=== PATIENT | female | born 1990 | race Two or more races ===

== ENCOUNTER → 2017-08-28 | Outpatient (CLI) | payer MEDICAID | LOC: FIMAGING 14:18 | DX: Z34.92 Encounter for supervision of normal pregnancy, unspecified, second trimester (principal); Z3A.23 23 weeks gestation of pregnancy ==

== ENCOUNTER 2017-10-24 11:57 | Observation (INO) | payer OTHER, MEDICAID ==
[2017-10-24 12:04] VITALS: RESP 16; TEMP 98.4; O2SAT 99
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
[2017-10-24 14:35] VITALS: BP 120/83; PULSE 92
[2017-10-24 14:41] LABS: PLATELET COUNT 213 10^3/uL (150-400)
[2017-10-24] MEDS ORDERED: LR 1,000 ML IV ONE (15:29)
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
[2017-10-24] MEDS ORDERED: FLU VACC QS 2017-18 (3YR+)/PF 0.5 ML SYR (FLUARIX QUAD) IM ONE (16:16)
== END 2017-10-24 19:40 | disposition home or self-care (01) ==
LOC: FLD 14:41
PROVIDERS: ADMIT Obstetrics & Gynecology; ATTEND Obstetrics & Gynecology
DX: Z04.1 Encounter for examination and observation following transport accident (principal); Z3A.31 31 weeks gestation of pregnancy; Z23 Encounter for immunization
CPT/HCPCS: 59025; 76815; G0378; G0008